=== PATIENT | female | born 1980 | race Caucasian/White ===

== ENCOUNTER 2016-11-29 14:35 | Emergency (ER) | payer BC ==
[2016-11-29] MEDS ORDERED: NS 0.9% 1000 ML* 3,000 ML IV ONE (15:21)
[2016-11-29] MEDS ORDERED: Ondansetron INJ* 2 MG/ML VIAL IV ONE (15:21)
[2016-11-29 15:58] LABS: Hematocrit 37 % (35-47); Hemoglobin 11.9 g/dl (12.0-16.0); Mean Corpuscular HGB Conc 33 g/dl (31-36); Mean Corpuscular Hemoglobin 26 pg (27-31); Mean Corpuscular Volume 81 fL (80-97); Mean Platelet Volume 9 um3 (7.4-10.4); Red Cell Distribution Width 14 % (10.5-15); White Blood Count 4.1 10^3/ul (3.5-10.8)
[2016-11-29 16:05] LABS: Urine Bacteria Absent (Absent); Urine Bilirubin Negative (Negative); Urine Glucose Negative (Negative); Urine Nitrite Negative (Negative)
[2016-11-29 16:14] LABS: ALT 25 U/L (7-52); AST 32 U/L (13-39); Albumin 4.2 g/dL (3.2-5.2); Alkaline Phosphatase 35 U/L (34-104); Anion Gap 5 mmol/L (2-11); BUN/Creatinine Ratio 19.7 (8-20); Blood Urea Nitrogen 13 mg/dL (6-24); C Reactive Protein 17.92 mg/L (< 5.00); CO2 Carbon Dioxide 20 mmol/L (22-32); Calcium 8.7 mg/dL (8.6-10.3); Chloride 113 mmol/L (101-111); EGFR African American 130.3 (>60); EGFR Non-African American 101.3 (>60); Globulin 2.9 g/dL (2-4); Glucose 89 mg/dL (70-100); Lipase 18 U/L (11.0-82.0); Potassium 3.8 mmol/L (3.5-5.0); Sodium 138 mmol/L (133-145); Total Protein 7.1 g/dL (6.4-8.9)
[2016-11-29 18:08] VITALS: BP 107/77
--- NOTE | 2016-11-29 18:44 | ED ---
Katherine Anderson Anna, scribed for Henry Cooper MD on 11/29/16 at 1507 . GI/ HPI - HPI Summary HPI Summary: Patient is a 36 y/o female coming to [facility] presenting with the sudden onset of watery diarrhea that began yesterday. She felt somewhat unwell three days ago, experienced emesis two days ago, and began having repeated episodes of diarrhea yesterday. This morning, she woke up to find that she had diarrhea in her sleep. After that, she experienced some burning with urination. She has mild, diffuse abdominal discomfort, of severity 3/10, somewhat bloated. She has had a mild fever, nausea, lightheadedness, dizziness. She feels thirsty and dehydrated with a dry mouth. She has been drinking Pedialyte and Gatorade. Denies sore throat, rhinorrhea, cough, congestion, vaginal discharge. The symptoms were not alleviated by the use of Pepto Bismol and Immodium. Denies recent Abx. Her son was recently sick with the stomach flu. He is feeling better. She denies previous abd surgeries. - History of Current Complaint Chief Complaint: EDNauseaVomitDiarrh Time Seen by Provider: 11/29/16 15:04 Stated Complaint: DIARRHEA-2DAYS Hx Obtained From: Patient, Family/Enamel Pulverizer - Accompanied by Onset/Duration: Started Days Ago, Still Present Severity: Moderate Current Severity: Moderate Pain Intensity: 3 - Allergy/Home Medications Allergies/Adverse Reactions: Allergies Allergy/AdvReac Type Severity Reaction Status Date / Time Amoxicillin Allergy DIARRHEA Verified 11/29/16 14:39 INFANT Seasonal Allergies Allergy Eyes Uncoded 11/29/16 14:39 Itchy/Swollen/Red/Watery PMH/Surg Hx/FS Hx/Imm Hx Endocrine/Hematology History: Denies: Hx Diabetes Cardiovascular History: Denies: Hx Congestive Heart Failure, Hx Hypertension History: Denies: Hx Renal Disease - Surgical History Surgery Procedure, Year, and Place: YRS AGO DEVIATED SEPTUM REPAIR Infectious Disease History: Denies: History Other Infectious Disease, Traveled Outside the [place] in Last 30 Days - Family History Known Family History: Negative: Cardiac Disease, Hypertension - Social History Alcohol Use: Occasionally Substance Use Type: Reports: None Hx Tobacco Use: No Smoking Status (MU): Never Smoked Tobacco Review of Systems Positive: Fever ENT: Other - dry mouth, thirsty Negative: Sore Throat, Nasal Discharge Negative: Cough Positive: Abdominal Pain, Vomiting, Diarrhea, Nausea Positive: burning. Negative: discharge Neurological: Other - lightheadedness, dizziness All Other Systems Reviewed And Are Negative: Yes Physical Exam Triage Information Reviewed: Yes Vital Signs On Initial Exam: Initial Vitals Temp Pulse Resp BP Pulse Ox 98.3 F 66 16 107/71 100 11/29/16 14:39 11/29/16 14:39 11/29/16 14:39 11/29/16 14:39 11/29/16 14:39 Vital Signs Reviewed: Yes Appearance: Positive: Well-Appearing, No Pain Distress Skin: Positive: Warm, Skin Color Reflects Adequate Perfusion, Dry Head/Face: Positive: Normal Head/Face Inspection Eyes: Positive: EOMI, RADAH ENT: Positive: Other - oral mucosa slightly dry Neck: Positive: Supple, Nontender Respiratory/Lung Sounds: Positive: Clear to Auscultation, Breath Sounds Present Cardiovascular: Positive: RRR Abdomen Description: Positive: Nontender, Soft. Negative: CVA Tenderness (R), CVA Tenderness (L) Bowel Sounds: Positive: Present Musculoskeletal: Positive: Normal, Strength/ROM Intact Neurological: Positive: Normal, Sensory/Motor Intact, Alert, Oriented to Person Place, Time Psychiatric: Positive: Affect/Mood Appropriate Diagnostics - Vital Signs Vital Signs Temp Pulse Resp BP Pulse Ox 11/29/16 14:39 98.3 F 66 16 107/71 100 - Laboratory Lab Results: Lab Results 11/29/16 11/29/16 11/29/16 Range/Units 15:42 15:42 15:42 WBC 4.1 (3.5-10.8) 10^3/ul RBC 4.50 (4.0-5.4) 10^6/ul Hgb 11.9 L (12.0-16.0) g/dl Hct 37 (35-47) % MCV 81 (80-97) fL MCH 26 L (27-31) pg MCHC 33 (31-36) g/dl RDW 14 (10.5-15) % Plt Count 144 L (150-450) 10^3/ul MPV 9 (7.4-10.4) um3 Neut % (Auto) 56.9 (38-83) % Lymph % (Auto) 23.0 L (25-47) % Gage % (Auto) 16.6 H (1-9) % Eos % (Auto) 3.0 (0-6) % Baso % (Auto) 0.5 (0-2) % Absolute Neuts (auto) 2.3 (1.5-7.7) 10^3/ul Absolute Lymphs (auto) 0.9 L (1.0-4.8) 10^3/ul Absolute Monos (auto) 0.7 (0-0.8) 10^3/ul Absolute Eos (auto) 0.1 (0-0.6) 10^3/ul Absolute Basos (auto) 0 (0-0.2) 10^3/ul Absolute Nucleated RBC 0 10^3/ul Nucleated RBC % 0 Sodium 138 (133-145) mmol/L Potassium 3.8 (3.5-5.0) mmol/L Chloride 113 H (101-111) mmol/L Carbon Dioxide 20 L (22-32) mmol/L Anion Gap 5 (2-11) mmol/L BUN 13 (6-24) mg/dL Creatinine 0.66 (0.51-0.95) mg/dL Est GFR ( Amer) 130.3 (>60) Est GFR (Non-Af Amer) 101.3 (>60) BUN/Creatinine Ratio 19.7 (8-20) Glucose 89 (70-100) mg/dL Lactic Acid (0.5-2.0) mmol/L Calcium 8.7 (8.6-10.3) mg/dL Total Bilirubin 0.40 (0.2-1.0) mg/dL AST 32 (13-39) U/L ALT 25 (7-52) U/L Alkaline Phosphatase 35 (34-104) U/L C-Reactive Protein 17.92 H (< 5.00) mg/L Total Protein 7.1 (6.4-8.9) g/dL Albumin 4.2 (3.2-5.2) g/dL Globulin 2.9 (2-4) g/dL Albumin/Globulin Ratio 1.4 (1-3) Lipase 18 (11.0-82.0) U/L Beta HCG, Quant < 0.60 mIU/mL Urine Color Yellow Urine Appearance Clear Urine pH 5.0 (5-9) Ur Specific Carmen 1.026 (1.010-1.030) Urine Protein Negative (Negative) Urine Ketones Negative (Negative) Urine Blood 2+ H (Negative) Urine Nitrate Negative (Negative) Urine Bilirubin Negative (Negative) Urine Urobilinogen Negative (Negative) Ur Leukocyte Esterase Negative (Negative) Urine WBC (Auto) Absent (Absent) Urine RBC (Auto) 2+(6-10/hpf) H (Absent) Calcium Oxalate Crystal Present H (Absent) Urine Bacteria Absent (Absent) Urine Glucose Negative (Negative) 11/29/16 Range/Units 15:42 WBC (3.5-10.8) 10^3/ul RBC (4.0-5.4) 10^6/ul Hgb (12.0-16.0) g/dl Hct (35-47) % MCV (80-97) fL MCH (27-31) pg MCHC (31-36) g/dl RDW (10.5-15) % Plt Count (150-450) 10^3/ul MPV (7.4-10.4) um3 Neut % (Auto) (38-83) % Lymph % (Auto) (25-47) % Gage % (Auto) (1-9) % Eos % (Auto) (0-6) % Baso % (Auto) (0-2) % Absolute Neuts (auto) (1.5-7.7) 10^3/ul Absolute Lymphs (auto) (1.0-4.8) 10^3/ul Absolute Monos (auto) (0-0.8) 10^3/ul Absolute Eos (auto) (0-0.6) 10^3/ul Absolute Basos (auto) (0-0.2) 10^3/ul Absolute Nucleated RBC 10^3/ul Nucleated RBC % Sodium (133-145) mmol/L Potassium (3.5-5.0) mmol/L Chloride (101-111) mmol/L Carbon Dioxide (22-32) mmol/L Anion Gap (2-11) mmol/L BUN (6-24) mg/dL Creatinine (0.51-0.95) mg/dL Est GFR ( Amer) (>60) Est GFR (Non-Af Amer) (>60) BUN/Creatinine Ratio (8-20) Glucose (70-100) mg/dL Lactic Acid 0.7 (0.5-2.0) mmol/L Calcium (8.6-10.3) mg/dL Total Bilirubin (0.2-1.0) mg/dL AST (13-39) U/L ALT (7-52) U/L Alkaline Phosphatase (34-104) U/L C-Reactive Protein (< 5.00) mg/L Total Protein (6.4-8.9) g/dL Albumin (3.2-5.2) g/dL Globulin (2-4) g/dL Albumin/Globulin Ratio (1-3) Lipase (11.0-82.0) U/L Beta HCG, Quant mIU/mL Urine Color Urine Appearance Urine pH (5-9) Ur Specific Carmen (1.010-1.030) Urine Protein (Negative) Urine Ketones (Negative) Urine Blood (Negative) Urine Nitrate (Negative) Urine Bilirubin (Negative) Urine Urobilinogen (Negative) Ur Leukocyte Esterase (Negative) Urine WBC (Auto) (Absent) Urine RBC (Auto) (Absent) Calcium Oxalate Crystal (Absent) Urine Bacteria (Absent) Urine Glucose (Negative) Result Diagrams: 11/29/16 15:42 11/29/16 15:42 Lab Statement: Any lab studies that have been ordered have been reviewed, and results considered in the medical decision making process. Re-Evaluation - Re-Evaluation First Eval Re-Evaluation Time: 17:10 Change: Unchanged Comment: She is still having diarrhea but is willing to try a PO challenge. Second Eval Re-Evaluation Time: 18:39 Change: Improved Comment: Patient is ready to be discharged. GIGU Course/Dx - Course Course Of Treatment: NO CRITICAL CARE TIME Assessment/Plan: STILL WITH DIARRHEA IN ED. NO FOCAL ABD PAIN, NO FEVER, NO BLOOD/WBCS IN STOOL. NO CLINICAL SIGNS OF KIDNEY STONES. DISCHARGE HOME STABLE. PATIENT WILL TRY FOODS THAT MAY SLOW THE DIARRHEA; SHE WILL RETURN IF WORSE. DISCHARGE HOME STABLE. - Diagnoses Provider Diagnoses: Diarrhea, Dehydration Discharge - Discharge Plan Condition: Stable Disposition: HOME Prescriptions: Ondansetron ODT TAB* [Zofran 4 MG Odt TAB*] 4 mg PO Q6H PRN #10 tab.odt PRN Reason: Nausea Patient Education Materials: Dehydration (ED), Acute Diarrhea (ED) Referrals: Mohan Sanchez MD [Primary Care Provider] - Additional Instructions: FOLLOW UP WITH YOUR DOCTOR. RETURN TO THE EMERGENCY DEPARTMENT FOR ANY WORSENING OF YOUR CONDITION; FEVER, PAIN, DEHYDRATION OR QUESTIONS OR CONCERNS. The documentation as recorded by the Katherine alcantar Anna accurately reflects the service I personally performed and the decisions made by me, Henry Cooper MD.
== END 2016-11-29 19:05 | disposition home or self-care (01) ==
LOC: ED 14:35
DX: R11.2 Nausea with vomiting, unspecified (principal); R19.7 Diarrhea, unspecified; R10.9 Unspecified abdominal pain; E86.0 Dehydration
CPT/HCPCS: 36415; 80053; 81003; 81015; 82270; 83605; 83630; 83690; 84702; 85025; 86140; 87045; 87046; 87328; 87329; 87493; 87899; 96374; 99283; J2405

== ENCOUNTER 2016-11-30 20:45 | Emergency (ER) | payer BC ==
[2016-11-30] MEDS ORDERED: Morphine INJ* 4 MG/ML 1 ML SYRINGE IV ONE (22:56)
[2016-11-30] MEDS ORDERED: Ondansetron INJ* 2 MG/ML VIAL IV ONE (22:56)
[2016-11-30] MEDS: NS 0.9% 1000 ML* 2,000 ML IV ONE ×2 (23:06→23:07)
[2016-11-30 23:13] LABS: Hematocrit 36 % (35-47); Hemoglobin 11.7 g/dl (12.0-16.0); Mean Corpuscular HGB Conc 33 g/dl (31-36); Mean Corpuscular Hemoglobin 27 pg (27-31); Mean Corpuscular Volume 82 fL (80-97); Mean Platelet Volume 9 um3 (7.4-10.4); Red Blood Count 4.42 10^6/ul (4.0-5.4); Red Cell Distribution Width 14 % (10.5-15); White Blood Count 5.1 10^3/ul (3.5-10.8)
[2016-11-30 23:30] LABS: Albumin 3.9 g/dL (3.2-5.2); C Reactive Protein 7.22 mg/L (< 5.00); Calcium 8.6 mg/dL (8.6-10.3); EGFR African American 145.5 (>60); EGFR Non-African American 113.1 (>60); Globulin 2.8 g/dL (2-4); Potassium 3.7 mmol/L (3.5-5.0); Total Bilirubin 0.3 mg/dL (0.2-1.0); Total Protein 6.7 g/dL (6.4-8.9)
[2016-12-01] MEDS ORDERED: Loperamide CAP* 2 MG PO ONE (00:27)
[2016-12-01] MEDS ORDERED: Ketorolac INJ* 30 MG/ML 1 ML VIAL ONE (00:59)
[2016-12-01] MEDS ORDERED: Ketorolac INJ* 30 MG/ML 1 ML VIAL IV PUSH ONE (01:01)
[2016-12-01] MEDS ORDERED: HYDROmorphone* 1 MG/ML 1 ML SYR IV ONE (01:37)
[2016-12-01] MEDS ORDERED: Iohexol 300* (CONTRAST) 10 ML SDV IV ONE (02:07)
[2016-12-01] MEDS ORDERED: Diphenoxylat/Atrop 2.5-0.025M* 1 TAB PO ONE ×2 (04:09→04:10)
--- NOTE | 2016-12-01 04:14 | ED ---
Ila Anderson Rebecca, scribed for Lisa Olivas MD on 11/30/16 at 2351 . Abdominal Pain/Female - HPI Summary HPI Summary: Pt is a 36 y/o F who presents to ED c/o abd pain. Pain began gradually 3 days ago and has been constant since onset. Pain is diffuse, characterized as cramping and severe, ranked 7/10. Sx aggravated and alleviated by nothing, unchanged by Immodium. Additionally c/o V/D. Reports 1 episode of vomiting 3 days ago and nonstop diarrhea for 3 days (30-40 episodes per day). Denies CP. Denies any recent Abx. Reports that her son had the stomach flu last week, which was not as severe as current sx. Pt was evaluated by [facility] ED yesterday for similar sx. No PMHx IBS. LNMP 11/25/2016. A0. - History of Current Complaint Chief Complaint: EDAbdPain Stated Complaint: DIARRHEA X3DAYS Time Seen by Provider: 11/30/16 22:39 Hx Obtained From: Patient Hx Last Menstrual Period: 04/11/15 Onset/Duration: Gradual Onset, Lasting Days - 3 days, Still Present Timing: Constant Severity Initially: Moderate Severity Currently: Severe Pain Intensity: 7 Pain Scale Used: 0-10 Numeric Location: Diffuse Radiates: No Character: Cramping Aggravating Factor(s): Nothing Alleviating Factor(s): Nothing Associated Signs and Symptoms: Positive: Vomiting - 1x, Diarrhea - 30-40 per day Allergies/Adverse Reactions: Allergies Allergy/AdvReac Type Severity Reaction Status Date / Time Amoxicillin Allergy DIARRHEA Verified 11/29/16 14:39 INFANT Seasonal Allergies Allergy Eyes Uncoded 11/29/16 14:39 Itchy/Swollen/Red/Watery PMH/Surg Hx/FS Hx/Imm Hx Endocrine/Hematology History: Denies: Hx Diabetes Cardiovascular History: Denies: Hx Congestive Heart Failure, Hx Hypertension GI History: Denies: Hx Irritable Bowel History: Denies: Hx Renal Disease - Surgical History Surgery Procedure, Year, and Place: YRS AGO DEVIATED SEPTUM REPAIR Infectious Disease History: No Infectious Disease History: Reports: Traveled Outside the [place] in Last 30 Days Denies: History Other Infectious Disease - Family History Known Family History: Negative: Cardiac Disease, Hypertension - Social History Alcohol Use: Occasionally Substance Use Type: Reports: None Hx Tobacco Use: No Smoking Status (MU): Never Smoked Tobacco Review of Systems Negative: Chest Pain Positive: Abdominal Pain - diffuse, Vomiting - 1x, Diarrhea - 30-40x per day All Other Systems Reviewed And Are Negative: Yes Physical Exam - Summary Physical Exam Summary: General: Well appearing, no pain distress Skin: Warm, Skin Color Reflects Adequate Perfusion, Dry Eyes: EOMI, RADHA ENT: Pharynx normal, TMs normal Neck: Supple, nontender Respiratory: CTA, breath sounds present, no rhonchi, no wheezes, no rales Cardiovascular: RRR, no murmur, no rub, no gallop Abdomen: Soft, non-distended, no guarding, no rebound. Diffuse tenderness, worse in the lower quadrants. Bowel: Present Musculoskeletal: NITA, No edema Neuro: Sensory/motor intact, A&Ox3, CN intact 2-12 Psych: Affect/mood appropriate Triage Information Reviewed: Yes Vital Signs On Initial Exam: Initial Vitals Temp Pulse Resp BP Pulse Ox 98.9 F 68 18 124/76 100 11/30/16 20:50 11/30/16 20:50 11/30/16 20:50 11/30/16 20:50 11/30/16 20:50 Vital Signs Reviewed: Yes - Cirilo Coma Scale Coma Scale Total: 15 Diagnostics - Vital Signs Vital Signs Temp Pulse Resp BP Pulse Ox 11/30/16 23:06 16 11/30/16 22:00 54 99/60 100 11/30/16 21:46 59 105/70 100 11/30/16 21:44 61 100 11/30/16 21:37 98.8 F 60 20 105/70 100 11/30/16 20:50 98.9 F 68 18 124/76 100 - Laboratory Lab Results: Lab Results 11/30/16 11/30/16 Range/Units 23:05 23:05 WBC 5.1 (3.5-10.8) 10^3/ul RBC 4.42 (4.0-5.4) 10^6/ul Hgb 11.7 L (12.0-16.0) g/dl Hct 36 (35-47) % MCV 82 (80-97) fL MCH 27 (27-31) pg MCHC 33 (31-36) g/dl RDW 14 (10.5-15) % Plt Count 148 L (150-450) 10^3/ul MPV 9 (7.4-10.4) um3 Neut % (Auto) 54.0 (38-83) % Lymph % (Auto) 30.9 (25-47) % Garfield % (Auto) 12.0 H (1-9) % Eos % (Auto) 2.6 (0-6) % Baso % (Auto) 0.5 (0-2) % Absolute Neuts (auto) 2.7 (1.5-7.7) 10^3/ul Absolute Lymphs (auto) 1.6 (1.0-4.8) 10^3/ul Absolute Monos (auto) 0.6 (0-0.8) 10^3/ul Absolute Eos (auto) 0.1 (0-0.6) 10^3/ul Absolute Basos (auto) 0 (0-0.2) 10^3/ul Absolute Nucleated RBC 0 10^3/ul Nucleated RBC % 0.1 Sodium 137 (133-145) mmol/L Potassium 3.7 (3.5-5.0) mmol/L Chloride 112 H (101-111) mmol/L Carbon Dioxide 17 L (22-32) mmol/L Anion Gap 8 (2-11) mmol/L BUN 12 (6-24) mg/dL Creatinine 0.60 (0.51-0.95) mg/dL Est GFR ( Amer) 145.5 (>60) Est GFR (Non-Af Amer) 113.1 (>60) BUN/Creatinine Ratio 20.0 (8-20) Glucose 97 (70-100) mg/dL Calcium 8.6 (8.6-10.3) mg/dL Total Bilirubin 0.30 (0.2-1.0) mg/dL AST 22 (13-39) U/L ALT 21 (7-52) U/L Alkaline Phosphatase 35 (34-104) U/L C-Reactive Protein 7.22 H (< 5.00) mg/L Total Protein 6.7 (6.4-8.9) g/dL Albumin 3.9 (3.2-5.2) g/dL Globulin 2.8 (2-4) g/dL Albumin/Globulin Ratio 1.4 (1-3) Lipase 21 (11.0-82.0) U/L Result Diagrams: 11/30/16 23:05 11/30/16 23:05 Lab Statement: Any lab studies that have been ordered have been reviewed, and results considered in the medical decision making process. - CT Abd/Pel CT CT Interpretation Completed By: Radiologist - Probable diarrheal illness with possible ileus. Abdominal Pain Fem Course/Dx - Course Course Of Treatment: 36 yo female with diarrhea multiple times a day since saturday with normal cultures and ct which is essentially normal. Lomotil added as an agent to stop the diarrhea and percocet added to help with the pain - Diagnoses Provider Diagnoses: Diarrhea Discharge - Discharge Plan Condition: Stable Disposition: HOME Prescriptions: Diphenoxylat/Atrop 2.5-0.025M* [Lomotil TAB*] 1 tab PO QID PRN #20 tab MDD 4 PRN Reason: Diarrhea oxyCODONE/Acetamin 5/325 MG* [Percocet 5/325 TAB*] 1 tab PO Q6H PRN #20 tab MDD 4 PRN Reason: Pain The documentation as recorded by the Ila alcantar Rebecca accurately reflects the service I personally performed and the decisions made by , Lisa Olivas MD.
[2016-12-01] MEDS ORDERED: oxyCODONE/Acetamin 5/325 MG* TAB PO ONE (04:16)
[2016-12-01 04:58] VITALS: BP 93/55
--- NOTE | 2016-12-01 09:39 | RAD ---
INDICATION: Bilateral lower abdominal pain. Diarrhea. COMPARISON: August 26, 2013 CT. TECHNIQUE: Multidetector CT images were obtained from the lung bases to the ischial tuberosities with 71 mL Omnipaque 300 IV and oral contrast. Multiplanar reformation. REPORT: Unremarkable visualized inferior thorax. 20 mL of cephalocaudal liver with variant Mary lobe. The liver is remarkable for 3 circumscribed hypodense lesions including 1.8 x 2.2 cm at the RIGHT posterior hepatic segment at the dome, 1.5 x 1.6 cm at the LEFT medial hepatic segment, and 0.9 x 1.2 cm at the LEFT lateral hepatic segment posteriorly without change compared with the 2013 exam without concern most likely representing benign hemangiomas. No suspicious focal hepatic lesions or biliary dilatation. No CT abnormality of the gallbladder, pancreas, spleen. No CT abnormality of the upper GI or small bowel. Unremarkable appendix visualized along the RIGHT pelvic sidewall reference coronal series images 38-44. Moderate gas and fluid distention of the colon with air-fluid levels. No mural thickening of the colon evident. Negative for appreciable free fluid. Negative for free air. Negative for hernias. Negative for adrenal lesions. Unremarkable kidneys with symmetric nephrograms and pyelograms. Unremarkable ureters and distended urinary bladder. Unremarkable anteverted uterus and adnexal regions. A few pelvic phleboliths are noted. Negative for lymphadenopathy. Normal diameter abdominal aorta and iliac arteries. Physiologic distention of the IVC. Negative for suspicious osseous lesions. IMPRESSION: 1. Normal appendix documented. 2. Moderate gas and fluid distention of the colon without significant mural thickening or perienteric inflammatory change. Consider infectious diarrheal illness. 3. Negative for ascites, free air, or bowel obstruction.
== END 2016-12-01 04:30 | disposition home or self-care (01) ==
LOC: ED 20:45
DX: R19.7 Diarrhea, unspecified (principal); R11.10 Vomiting, unspecified; R10.9 Unspecified abdominal pain
CPT/HCPCS: 36415; 74177; 80053; 82272; 83630; 83690; 85025; 86140; 87045; 87046; 87077; 87493; 87899; 96374; 96375; 99283; A9270-GY; J1170; J1885; J2270; J2405; Q9967

== ENCOUNTER 2017-02-15 08:32 | Day surgery (SDC) | payer BC ==
[~2017-02-15 08:32] MED LIST: Buffered Lidocaine 0.9% SYRIN* 5 ML/SYR SYRINGE INTRADERM ONE; Famotidine IV* 10 MG/ML 2 ML (20 mg) IV ONE
[2017-02-15] MEDS ORDERED: Buffered Lidocaine 0.9% SYRIN* 5 ML/SYR SYRINGE ONE (08:43)
[2017-02-15] MEDS ORDERED: Famotidine IV* 10 MG/ML 2 ML (20 mg) ONE (08:43)
[2017-02-15 08:48] LABS: Manual Entry Verification HAN0055; UR Preg Internal Control QC Line Present
[2017-02-15] MEDS ORDERED: Ondansetron INJ* 2 MG/ML VIAL ONE (09:52)
[2017-02-15] MEDS ORDERED: Lidocaine 2% PF * 5 ML VIAL ONE (09:52)
[2017-02-15] MEDS ORDERED: Midazolam* 1 MG/ML 5 ML VIAL (5 MG) ONE (09:52)
[2017-02-15] MEDS ORDERED: fentaNYL* 50 MCG/ML 2 ML VIAL (100 MCG VIAL) ONE ×2 (09:52→10:55)
[2017-02-15] MEDS ORDERED: Dexamethasone IV* 4 MG/ML 1 ML (4 MG) ONE (09:52)
[2017-02-15] MEDS ORDERED: Propofol* 10 MG/ML 20 ML BTL IV PUSH ONE (09:52)
[2017-02-15 12:22] VITALS: BP 133/87
--- NOTE | 2017-02-16 05:09 | OP ---
DATE OF OPERATION: 02/15/17 - [facility] DATE OF : 80 SURGEON: Bishnu Anne MD SKIMMER SCOOP OPERATOR: None. ANESTHESIOLOGIST: Jerrod Appiah MD ANESTHESIA: General. PRE-OP DIAGNOSIS: Chronic tonsillitis. POST-OP DIAGNOSIS: Chronic tonsillitis. OPERATIVE PROCEDURE: Tonsillectomy. ESTIMATED BLOOD LOSS: Negligible. SPECIMENS: Right and left tonsils to pathology. DETAILS OF PROCEDURE: This is a 36-year-old woman with chronic tonsillitis who presents for elective tonsillectomy. She was brought to the operating room and general anesthesia was induced and an oral endotracheal tube was placed. The table was turned, the patient was draped, and a time-out was performed. A McIvor mouth gag was used to facilitate exposure to the oropharynx and was suspended from the Umanzor stand. The right tonsil was grasped with straight Allis forceps, retracted medially and dissected free of its fossa with a coblation device at a setting of 7 and 3. There was no bleeding. The left tonsil was removed in an identical fashion again utilizing the coblation device and again with no bleeding. Once the tonsils were removed, the device settings were turned up to 5 on the coag and the superior and inferior pole regions were prophylactically cauterized. The mouth gag was then let down for a period of a minute. It was then opened again, there was no evidence of active bleeding. An orogastric tube was passed into the stomach and the stomach contents were evacuated. The patient was then returned to the care of the anesthesiologist, extubated in stable condition. [id number]/CPS #: [id number] [facility]
== END 2017-02-15 12:25 | disposition home or self-care (01) ==
LOC: OR 08:32
PROVIDERS: ATTEND Otolaryngology
DX: J35.01 Chronic tonsillitis (principal)
CPT/HCPCS: 81025; 88304; J1100; J2250; J2405; J2704; J3010

== ENCOUNTER 2019-10-03 11:36 | Emergency (ER) | payer BC ==
--- NOTE | 2019-10-03 12:24 | ED ---
Abdominal Pain/Female - HPI Summary HPI Summary: This patient is a 39 year old F presenting to [facility] accompanied by with a chief complaint of severe abdomen distention since one month ago. Pt does not think she is as her has had a vasectomy, and she is on the pill. She report that with here cycle she has some bloating but nothing like this. She says it feel very hard, generalized pain and it is uncomfortable. Pt reports she is normally 122llbs, and then suddenly overnight she gained 3 lbs again. Pt has been dieting and lost the weight but the bulge as remained. Pt eats very healthy. Patient reports diarrhea. Patient denies nausea, vomiting, vaginal bleeding, discharge, dysuria, and hematuria. Pt had an abdominalplasty year and half ago. Pt does not smoke and rarely drinks alcohol. Pt has a FHx of diverticulitis. Medications reviewed. Allergies noted. - History of Current Complaint Chief Complaint: EDAbdPain Stated Complaint: POSS BOWEL OBSTRUCTION PER PT Time Seen by Provider: 10/03/19 11:57 Hx Obtained From: Patient Hx Last Menstrual Period: one month ago Onset/Duration: Sudden Onset, Lasting Weeks, Still Present Timing: Constant Severity Initially: Mild Severity Currently: Mild Pain Intensity: 4 Pain Scale Used: 0-10 Numeric Location: Diffuse Character: Dull Aggravating Factor(s): Nothing Alleviating Factor(s): Nothing Associated Signs and Symptoms: Positive: Diarrhea. Negative: Urinary Symptoms, Vaginal Bleeding, Vaginal Discharge, Nausea, Vomiting Allergies/Adverse Reactions: Allergies Allergy/AdvReac Type Severity Reaction Status Date / Time amoxicillin Allergy Diarrhea Verified 10/03/19 11:41 Seasonal Allergies Allergy Eyes Uncoded 10/03/19 11:41 Itchy/Swollen/Red/Watery Home Medications: Home Medications Calcium & Vitamin D 1 tab PO BID 04/16/15 [History Confirmed 02/15/17] Multi Vitamin 1 tab PO QAM 04/16/15 [History Confirmed 02/15/17] Probiotic 1 cap PO QAM 04/16/15 [History Confirmed 02/15/17] Vitamin B12 TAB* 1 tab PO QAM 04/16/15 [History Confirmed 02/15/17] ZyrTEC* 1 tab PO QAM 04/16/15 [History Confirmed 02/15/17] Sertraline* [Zoloft*] 50 mg PO QPM 05/26/16 [History Confirmed 02/15/17] Evening [place] Oil-Vitamin E [Evening [place] Oil/Ashley] 1 cap PO QPM [History Confirmed 02/15/17] Herbal Pms Supplement 1 cap PO QAM 02/11/17 [History Confirmed 02/15/17] Ibuprofen TAB* [Advil TAB*] 400 mg PO Q6H PRN 02/11/17 [History Confirmed ] LORazepam TAB(*) [Ativan 0.5 MG TAB (*)] 0.5 mg PO BEDTIME PRN 02/11/17 [ History Confirmed 02/15/17] Polyethylene Glycol 3350 [Miralax] 17 gm PO QAM 14 Days #14 powd.pack 10/03/19 [ Rx] PMH/Surg Hx/FS Hx/Imm Hx Endocrine/Hematology History: Denies: Hx Diabetes Cardiovascular History: Denies: Hx Congestive Heart Failure, Hx Hypertension GI History: Denies: Hx Irritable Bowel History: Denies: Hx Renal Disease Sensory History: Reports: Hx Contacts or Glasses - contacts, will wear glasses day of surgery Opthamlomology History: Reports: Hx Contacts or Glasses - contacts, will wear glasses day of surgery Psychiatric History: Reports: Hx Anxiety - on med - Surgical History Surgery Procedure, Year, and Place: [facility] - deviated septum repair. [facility] -benign growth from back removed. [place] - mole removed from labia Hx Anesthesia Reactions: No Infectious Disease History: No Infectious Disease History: Denies: History Other Infectious Disease, Traveled Outside the [place] in Last 30 Days - Family History Known Family History: Negative: Cardiac Disease, Hypertension - Social History Occupation: Employed Full-time Alcohol Use: Rare Substance Use Type: Reports: None Hx Tobacco Use: No Smoking Status (MU): Never Smoked Tobacco Review of Systems Positive: Abdominal Pain, Diarrhea. Negative: Vomiting, Nausea Negative: dysuria, discharge, hematuria All Other Systems Reviewed And Are Negative: Yes Physical Exam - Summary Physical Exam Summary: Constitutional: Well-developed, Well-nourished, Alert. (-) Distressed Skin: Warm, Dry HENT: Normocephalic; Atraumatic Eyes: Conjunctiva normal Neck: Musculoskeletal ROM normal neck. (-) JVD, (-) Stridor, (-) Tracheal deviation Cardio: Rhythm regular, rate normal, Heart sounds normal; Intact distal pulses; Radial pulses are 2+ and symmetric. (-) Murmur Pulmonary/Chest wall: Effort normal. (-) Respiratory distress, (-) Wheezes, (-) Rales Abd: Soft, (-) Guarding, (-) Rebound; No tenderness; no obvious masses palpated Musculoskeletal: (-) Edema Lymph: (-) Cervical adenopathy Neuro: Alert, Oriented x3 Psych: Mood and affect Normal Triage Information Reviewed: Yes Vital Signs On Initial Exam: Initial Vitals Temp Pulse Resp BP Pulse Ox 98.0 F 73 19 128/94 98 10/03/19 11:38 10/03/19 11:38 10/03/19 11:38 10/03/19 11:38 10/03/19 11:38 Vital Signs Reviewed: Yes Procedures - Sedation Patient Received Moderate/Deep Sedation with Procedure: No Diagnostics - Vital Signs Vital Signs Temp Pulse Resp BP Pulse Ox 10/03/19 11:38 98.0 F 73 19 128/94 98 - Laboratory Result Diagrams: 10/03/19 12:22 10/03/19 12:21 Lab Statement: Any lab studies that have been ordered have been reviewed, and results considered in the medical decision making process. - CT Abdomen/Pelvis CT CT Interpretation Completed By: Radiologist Summary of CT Findings: Abdomen/Pelvis CT reveals, per radiologist IMPRESSION: 1. There is no acute inflammatory change of the gastrointestinal tract or signs of bowel. obstruction. 2. There is questionable identification of the appendix , but there is no focal. inflammatory change in the right lower quadrant or at the base of the cecum that would be. consistent with acute appendicitis. 3. As has been seen on today's ultrasound as well as prior CT examinations, there are. dilated left pelvic varicose veins as well as a pathologically dilated left ovarian vein. This appearance could be consistent with pelvic congestion syndrome which is characterized. clinically by late day, gravity dependent pelvic pain, dysmenorrhea, vague. gastrointestinal symptoms, dyspareunia and/ or varicose veins of the legs and pelvis. 4. Stable hypoattenuating lesions in the liver are most consistent with benign. hemangiomas. ED physician has reviewed this radiology report. - Ultrasound Transvaginal US Ultrasound Interpretation Completed By: Radiologist Summary of Ultrasound Findings: Transvaginal US reveals, per radiologist IMPRESSION: 1. There are pathologically dilated left periuterine varicose veins measuring at least 8. mm in diameter similar to the pelvic ultrasound dated August 26, [address] examinations acquired 12/01/2016 and . This appearance is consistent with pelvic congestion syndrome (PCS). PCS characterize clinically as late day, gravity dependent pelvic pain, dysmenorrhea, vague gastrointestinal symptoms, dyspareunia and superficial varicose veins of the legs and pelvis. 2. Otherwise normal and age-appropriate pelvic ultrasound. ED physician has reviewed this radiology report. Re-Evaluation - Re-Evaluation First Eval Re-Evaluation Time: 13:49 Comment: Discussed results and plan of care with pt. Second Eval Re-Evaluation Time: 14:10 Comment: called brother, and brother would be much more reassured with a CT scan. Third Eval Re-Evaluation Time: 17:09 Comment: Discussed results with pt. Abdominal Pain Fem Course/Dx - Course Course Of Treatment: Patient is here with one month of lower abdominal distention and abnormal bowel movements. Patient had a bowel movement this morning and has had no vomiting. Patient is overall well-appearing with no tenderness on exam. Patient has no masses on exam. Patient had a pelvic exam performed yesterday at her [employer] office so do not believe she needs another one today. Patient had blood work performed which was grossly unremarkable. Patient had a pelvic ultrasound which showed possible pelvic congestion syndrome. Patient was initially going to be discharged but her brother who is a radiologist in [facility] called and was upset we did not get a CT scan. Patient and brother are not comfortable being discharged so a CT scan was ordered. Patient's CT scan showed no acute abnormality. Patient was referred to Dr. Lewis for her possible pelvic congestion syndrome. 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 Hutchison to be evaluated for pelvic congestion syndrome. Try your laxative. Call PCP, and OBGYN, to be evaluated for further testing. Return to ED for pelvic pain, and heavy vaginal bleeding or any other concerning symptoms - Billing Disposition and Condition Condition: STABLE Disposition: Home - Attestation Statements Document Initiated by Michelle: Yes Documenting Scribe: Tiera Lozoya Provider For Whom Michelle is Documenting (Include Credential): Calos Ellsworth MD Scribe Attestation: Tiera Anderson, scribed for Calos Ellsworth MD on 10/03/19 at 1821. Scribe Documentation Reviewed: Yes Provider Attestation: The documentation as recorded by the Tiera alcantar accurately reflects the service I personally performed and the decisions made by , Calos Ellsworth MD Status of Scribe Document: Viewed
[2019-10-03 13:05] LABS: ABS Eosinophils 0.1 10^3/ul (0-0.6); ABS Lymphocytes 1.9 10^3/ul (1.0-4.8); ABS Monocytes 0.4 10^3/ul (0-0.8); Eosinophil % 1.1 %; Hematocrit 40 % (35-47); Hemoglobin 13.8 g/dL (12.0-16.0); Lymphocyte % 29.6 %; Mean Corpuscular HGB Conc 34 g/dL (31-36); Mean Corpuscular Hemoglobin 30 pg (27-31); Mean Corpuscular Volume 86 fL (80-97); Mean Platelet Volume 9.2 fL (7.4-10.4); Platelet Count 224 10^3/uL (150-450); Red Blood Count 4.65 10^6 /uL (3.70-4.87); Red Cell Distribution Width 13 % (10-15); White Blood Count 6.4 10^3/uL (3.5-10.8)
[2019-10-03 13:20] LABS: ALT 12 U/L (7-52); AST 21 U/L (13-39); Albumin 4.3 g/dL (3.2-5.2); Albumin/Globulin Ratio 1.6 (1-3); Alkaline Phosphatase 34 U/L (34-104); Anion Gap 5 mmol/L (2-11); BUN/Creatinine Ratio 15.1 (8-20); Blood Urea Nitrogen 13 mg/dL (6-24); CO2 Carbon Dioxide 26 mmol/L (22-32); Calcium 9.4 mg/dL (8.6-10.3); Chloride 106 mmol/L (101-111); EGFR African American 88.9 (>60); EGFR Non-African American 73.5 (>60); Globulin 2.7 g/dL (2-4); Glucose 87 mg/dL (70-100); Sodium 137 mmol/L (135-145)
[2019-10-03 13:22] LABS: Urine Appearance Cloudy; Urine Bilirubin Negative (Negative); Urine Blood Negative (Negative); Urine Color Yellow; Urine Glucose Negative (Negative); Urine Ketones Negative (Negative); Urine Nitrite Negative (Negative); Urine Protein Negative (Negative); Urine Specific Gravity 1.009 (1.010-1.030); Urine Urobilinogen Negative (Negative)
[2019-10-03 13:26] LABS: HCG Pregnancy < 0.60 mIU/mL
[2019-10-03] MEDS ORDERED: Iohexol 300* (CONTRAST) 10 ML SDV IV ONE (15:45)
[2019-10-03 17:58] VITALS: BP 116/81
== END 2019-10-03 18:00 | disposition home or self-care (01) ==
LOC: ED 11:36
DX: N94.89 Other specified conditions associated with female genital organs and menstrual cycle (principal); R10.30 Lower abdominal pain, unspecified; F41.9 Anxiety disorder, unspecified; R19.7 Diarrhea, unspecified; Z88.0 Allergy status to penicillin; Z79.899 Other long term (current) drug therapy
CPT/HCPCS: 36415; 74177; 76830; 80053; 81003; 83690; 84702; 85025; 99282; Q9967